=== PATIENT | female | born 1980 | race Caucasian/White ===

== ENCOUNTER 2020-05-29 08:27 | Outpatient (CLI) | payer OTHER ==
[~2020-05-29 08:27] MED LIST: TRAMADOL HCL-AP1 TAB PO
== END 2020-05-29 08:30 | disposition home or self-care (01) ==
LOC: SONOGRAMA 08:27
PROVIDERS: ATTEND Pathology Anatomic Pathology & Clinical Pathology
DX: E04.2 Nontoxic multinodular goiter (principal)

== ENCOUNTER 2020-12-28 08:03 | Outpatient (CLI) | payer OTHER | END 2020-12-28 08:09 | disposition home or self-care (01) | LOC: SONOGRAMA 08:03 | PROVIDERS: ATTEND Pathology Anatomic Pathology & Clinical Pathology | DX: E04.2 Nontoxic multinodular goiter (principal) ==